=== PATIENT | female | born 1945 | race Caucasian/White ===

== ENCOUNTER 2023-11-30 11:41 | Outpatient (CLI) | payer MEDICARE, SELFPAY ==
[2023-11-30 18:21] LABS: Basophils # 0.1 K/mm3 (0-0.2); Basophils % 0.8 % (0.1-2.0); Eosinophils # 0.1 K/mm3 (0.0-0.4); Eosinophils % 1.6 % (0.1-12.0); Hematocrit 41.4 % (37.0-47.0); Lymphocytes # 1.2 K/mm3 (0.7-4.5); Lymphocytes % 21.6 % (10-50); Mean Corpuscular HGB Conc 31.4 g/dL (31.8-35.4); Mean Corpuscular Hemoglobin 30.1 pg (27.0-31.2); Mean Corpuscular Volume 95.9 fl (81-99); Mean Platelet Volume 10.1 fl (7.4-10.4); Monocytes # 0.4 K/mm3 (0.1-1.0); Monocytes % 6.5 % (1.7-9.3); Neutrophils % 69.4 % (37.0-80.0); Platelet Count 279 K/mm3 (142-424); Red Blood Count 4.32 M/mm3 (4.20-5.40); Red Cell Distribution Width 13.3 % (11.5-17.5); White Blood Count 5.7 K/mm3 (4.8-10.8)
[2023-11-30 18:54] LABS: Alanine Aminotransferase 25 U/L (12-78); Albumin Level 4.4 g/dl (3.5-5.0); Albumin/Globulin Ratio 1.6 (1.1-1.8); Alkaline Phosphatase 79 U/L (38-126); Anion Gap 11.3 mEq/L (5-15); Aspartate Amino Transferase 37 U/L (14-36); Bilirubin,Total 0.5 mg/dl (0.2-1.3); Blood Urea Nitrogen 19 mg/dl (7-17); Calcium 10.1 mg/dl (8.4-10.2); Carbon Dioxide 28 mmol/L (22.0-30.0); Chloride 105 mmol/L (98-107); Estimated Glomerular Filt Rate 69 ml/min (>60); GFR (African American) 84 ML/MIN (>60); Globulin 2.7 g/dL (1.3-3.2); Glucose 105 mg/dl (74-100); HDL Cholesterol 49 mg/dl (40-60); Potassium 4.3 mmoL/L (3.5-5.1); Sodium 140 mmol/L (136-145); Total Protein,Serum 7.1 g/dl (6.3-8.2); Triglycerides 208 mg/dl (30-150); VLDL Cholesterol 42 mg/dL (0-40)
[2023-11-30 19:05] LABS: Direct LDL Cholesterol 188.72 mg/dL (100-129)
[2023-11-30 19:11] LABS: 25-OH Vitamin D, Total 37.4 ng/mL (30-100)
[2023-11-30 19:17] LABS: Chol/HDL Ratio 6.9 (1-3.5); Cholesterol 336 mg/dl (140-200)
[2023-11-30 19:24] LABS: Thyroid Stimulating Hormone 2.48 uIU/mL (0.465-4.68)
[2023-11-30 20:02] LABS: Vitamin B12 > 1000 pg/mL (239-931)
[2023-11-30 20:18] LABS: Hemoglobin A1C 5.9 % (4.0-6.0)
== END 2023-11-30 23:59 | disposition home or self-care (01) ==
LOC: LAB.DROPOF 12-01 11:41
PROVIDERS: PCP Internal Medicine; Visit Provider Internal Medicine
DX: R53.83 Other fatigue (principal); E78.5 Hyperlipidemia, unspecified; R73.09 Other abnormal glucose; E55.9 Vitamin D deficiency, unspecified; Z68.25 Body mass index [BMI] 25.0-25.9, adult
CPT/HCPCS: 80053; 80061; 82306; 82607; 83036; 84443; 85025

== ENCOUNTER 2023-12-09 08:47 | Outpatient (CLI) | payer MEDICARE, SELFPAY ==
--- NOTE | 2023-12-09 08:49 | CA_ITS ---
FINAL REPORT TECHNIQUE: Bilateral lower extremity venous duplex was performed with augmentation and compression. CLINICAL HISTORY: Bilateral lower extremity edema, CVA, ASA 81 mg COMPARISON: None FINDINGS: Proper flow is seen throughout the deep venous systems bilaterally. There is no evidence of deep venous thrombosis. IMPRESSION: No evidence of deep venous thrombosis of the bilateral lower extremities. Reviewed, Interpreted and Dictated by Sean Lopez MD Transcribed by Aileen Gann Authenticated and [facility]
== END 2023-12-09 23:59 | disposition home or self-care (01) ==
LOC: RT 08:49
PROVIDERS: PCP Internal Medicine; Visit Provider Internal Medicine
DX: R60.0 Localized edema (principal)
CPT/HCPCS: 93970

== ENCOUNTER 2024-04-05 10:44 | Outpatient (CLI) | payer MEDICARE, SELFPAY ==
[2024-04-05 19:30] LABS: Hemoglobin A1C 5.8 % (4.0-6.0)
[2024-04-05 19:37] LABS: HDL Cholesterol 46 mg/dl (40-60); Triglycerides 205 mg/dl (30-150); VLDL Cholesterol 41 mg/dL (0-40)
[2024-04-05 19:45] LABS: Chol/HDL Ratio 7.4 (1-3.5); Cholesterol 341 mg/dl (140-200)
[2024-04-05 19:56] LABS: Direct LDL Cholesterol 202.73 mg/dL (100-129)
[2024-04-05 19:57] LABS: Creatinine,Urine Random 38 mg/dL (Not Estab.); Microalbumin < 6.000 mg/L (0-16.7)
== END 2024-04-05 23:59 | disposition home or self-care (01) ==
LOC: LAB.DROPOF 04-06 10:44
PROVIDERS: PCP Internal Medicine; Visit Provider Internal Medicine
DX: Z13.1 Encounter for screening for diabetes mellitus (principal); R73.03 Prediabetes; E66.3 Overweight; Z68.29 Body mass index [BMI] 29.0-29.9, adult
CPT/HCPCS: 80061; 82043; 82570; 83036

== ENCOUNTER 2024-04-19 16:44 | Outpatient (CLI) | payer MEDICARE, SELFPAY ==
--- NOTE | 2024-04-19 16:45 | MR_ITS ---
FINAL REPORT CLINICAL HISTORY: radicular pain bilaterally. hx lumbar surgery 15 years ago. low back pain. COMPARISON: None FINDINGS: Multiplanar MR imaging of the lumbar spine was performed without and with contrast. There is evidence of a prior fusion at the L4-5 level. On the sagittal T2-weighted images, disc degeneration is seen at multiple levels. The vertebral alignment is normal. There is no evidence of fracture. The conus is seen at approximately the L1 level and has an unremarkable appearance. T12-L1: There is no significant canal stenosis or neural foraminal narrowing. L1-2: An annular bulge is present, with facet arthropathy, and with mild bilateral neural foraminal narrowing. L2-3: An annular bulge is present with facet arthropathy and osteophytes. There is bilateral lateral recess stenosis, moderate canal stenosis with an AP canal diameter of 5 mm, and moderate bilateral neural foraminal narrowing. L3-4: An annular bulge is present with facet arthropathy. There is bilateral lateral recess stenosis, moderate bilateral neural foraminal narrowing, and moderate canal stenosis with an AP canal diameter of 6 mm. L4-5: L4-5 laminectomies and fusion have been performed. There is mild left neural foraminal narrowing. L5-S1: An annular bulge is present with facet arthropathy and osteophytes. There is moderate bilateral neural foraminal narrowing. No abnormal contrast enhancement is identified. There is a linear focus of decreased signal, nonenhancing, in the medial right iliac bone, that may represent postoperative change. IMPRESSION: Prior fusion at the L4-5 level. Multilevel degenerative change, most severe at the L2-3 and L3-4 levels with moderate canal stenosis and moderate bilateral neural foraminal narrowing. Reviewed, Interpreted and Dictated by Bonilla Coombs III, MD Transcribed by Arlette Condon Authenticated and [facility]
[2024-04-19 17:17] LABS: Blood Urea Nitrogen 27 mg/dl (7-17); Estimated Glomerular Filt Rate 69 ml/min (>60); GFR (African American) 84 ML/MIN (>60)
[2024-04-19] MEDS: SODIUM CHLORIDE 0.9% 10ML SYR (RAD ONLY) 10 ML IV (17:39)
[2024-04-19] MEDS: GADOTERIDOL INJ 10ML SYRINGE 13 ML IV (17:40)
== END 2024-04-19 23:59 | disposition home or self-care (01) ==
LOC: RAD 16:45
PROVIDERS: PCP Internal Medicine; Visit Provider Internal Medicine
DX: M54.42 Lumbago with sciatica, left side (principal); M54.41 Lumbago with sciatica, right side; G89.29 Other chronic pain
CPT/HCPCS: 36415; 72158; 82565; 84520; A9576

== ENCOUNTER 2024-05-04 09:48 | Outpatient (POV) | payer MEDICARE, SELFPAY ==
[2024-05-04 10:35] VITALS: BP 156/86; PULSE 87; O2SAT 97; BMI 25.9
--- NOTE | 2024-05-04 12:22 | A.OFFVIS_ITS ---
HPI Data of Consult Patient: new to practice Consult date: 05/04/24 Requesting Physician: Drea Hampton APRN Primary Care Provider: Taj Case DO Consult Narrative Reason for consult: Low back pain, bilateral hip pain, peripheral neuropathy History of present illness: Ms. Epps is a 78 year old female who presents today as a new patient. She is a referral from primary care on [facility]. Today she rates her pain a 6 out of 10. Patient states her pain is all around her low back and bilateral hips but she also has pain from her waist down related to a history of stroke as well as peripheral neuropathy. Patient states her pain is always a constant sensation and describes it as an aching, throbbing, tingling that does interfere with her ability perform activities of daily living such as cooking and cleaning. Patient states she has had this pain for years and its progressively worsened. Patient does state that she has had prior lumbar spinal fusion back in 2002. Patient does also states she has been in pain management in the past in [place] and that she did have 1 injection that was very very painful. She states during that time they did not let the lidocaine or numbing medication kick in long enough before they did the additional injection and it was very severe. Patient does also state that she has had prior injections in her neck related to a fall she suffered. Patient is prescribed compounded cream for her feet currently and has tried and failed conservative therapy such as oral medication, heat and ice and topicals as well as chiropractor therapy with no additional changes. Patient has tried to be very active at home with minimal changes. Patient does use a cane for help with ambulation. Her Abrahan has been reviewed and is appropriate. CC: Drea Hampton APRN [facility] Disclaimer: The information contained in this section may have been updated after the patient was seen, as this information can be updated by other users. Medical History Prolapse of bladder History of stroke 2020 Basal cell carcinoma Diverticulitis Hx of Clostridium difficile infection Myalgia and myositis Depression Menopausal disorder Dry senile macular degeneration Herniated disc Lactose intolerance Irritable bowel syndrome (IBS) High cholesterol Surgical History Hx of spinal fusion History of mandibular surgery H/O: hysterectomy Social History Smoking Status: Never smoker alcohol intake: never substance use type: denies use current occupational status: retired Travel in the last 8 weeks: None Review of Systems Review of Systems Review of systems:: pertinent systems reviewed and negative unless documented b elow Review of systems (narrative): Review of Systems: General: No recent weight changes, no fever, no sleep disturbances Respiratory: No cough, no shortness of air, no recurring pulmonary infections Cardiovascular/peripheral vascular: No chest pain, no palpitations, no edema, no shortness of breath Gastrointestinal: No new onset incontinence, normal bowel movements reported Genitourinary: No new onset incontinence Musculoskeletal: Low back pain, bilateral hip pain, peripheral neuropathy, chronic neck pain Psychiatric: [Normal mood/affect] Neurological: [Denies weakness in extremities], [denies balance issues] Meds Home Medications and Allergies Home Medications ?Medication ?Instructions ?Recorded ?Confirmed ?Type aspirin 81 mg tablet,delayed 81 mg PO DAILY 11/30/23 05/04/24 History release (Adult Low Dose Aspirin) cholecalciferol (vitamin D3) 25 25 mcg PO DAILY 11/30/23 05/04/24 History mcg (1,000 unit) capsule diphenhydramine HCl 25 mg capsule 25 mg PO HS PRN allergies 11/30/23 05/04/24 History (Benadryl) metoprolol tartrate 25 mg tablet 25 mg PO DAILY 11/30/23 05/04/24 History cftfotuojcwz-fcpyarwn-drfzxz tablet 1 tab PO DAILY 11/30/23 05/04/24 History potassium citrate 99 mg capsule 99 mg PO DIRECTED 11/30/23 05/04/24 History amitriptyline 100 mg tablet 100 mg PO DAILY #90 tabs 12/03/23 05/04/24 Rx ezetimibe 10 mg tablet 10 mg PO DAILY #90 tabs 12/03/23 05/04/24 Rx lisinopril 20 mg tablet 20 mg PO DAILY #90 tabs 12/03/23 05/04/24 Rx oukrvqopc-pvhwwdhck-ryaecrbw-scop 1 tab PO QAC seizures #20 tabs 12/14/23 05/04/24 Rx 16.2 mg-0.1037 mg-0.0194 mg tablet () lidocaine 5 % topical patch 1 patch topical DAILY low back 04/27/24 05/04/24 Rx pain #30 ea New Prescriptions to Start Prescriptions: Allergies Allergy/AdvReac Type Severity Reaction Status Date / Time amlodipine AdvReac Verified 04/26/24 10:57 carvedilol AdvReac Verified 04/26/24 10:57 ciprofloxacin [From Cipro] AdvReac Verified 04/26/24 10:57 duloxetine AdvReac Verified 04/26/24 10:57 fenofibrate AdvReac Verified 04/26/24 10:57 gabapentin AdvReac Verified 04/26/24 10:57 hydrochlorothiazide AdvReac Verified 04/26/24 10:57 hydrocodone AdvReac Verified 04/26/24 10:57 labetalol AdvReac Verified 04/26/24 10:57 niacin AdvReac Verified 04/26/24 10:57 paroxetine AdvReac Verified 04/26/24 10:57 Qszzvew-JBY-EhC Reductase AdvReac Verified 04/26/24 10:57 Inhibitor Sulfa (Sulfonamide AdvReac Verified 04/26/24 10:57 Antibiotics) valsartan AdvReac Verified 04/26/24 10:57 Objective Vital signs: Pulse BP Pulse Ox O2 Del Method 87 156/86 H 97 Room Air 05/04/24 10:35 05/04/24 10:35 05/04/24 10:35 05/04/24 10:35 Narrative: Physical Exam: General: Alert and oriented x3, no acute distress, pleasant and cooperative Lungs: Respirations even and unlabored, symmetrical chest expansion Eyes: PERRL Musculoskeletal: Flexion and extension of lumbar [spine] somewhat guarded secondary to pain, [antalgic gait noted] point tenderness along bilateral SIs with positive bilateral Puma's, Ed's, Gaenslen's, compression and distraction exam Neurological: Speech clear, no gross sensory deficit Additional findings Additional findings: FINDINGS: Multiplanar MR imaging of the lumbar spine was performed without and with contrast. There is evidence of a prior fusion at the L4-5 level. On the sagittal T2-weighted images, disc degeneration is seen at multiple levels. The vertebral alignment is normal. There is no evidence of fracture. The conus is seen at approximately the L1 level and has an unremarkable appearance. T12-L1: There is no significant canal stenosis or neural foraminal narrowing. L1-2: An annular bulge is present, with facet arthropathy, and with mild bilateral neural foraminal narrowing. L2-3: An annular bulge is present with facet arthropathy and osteophytes. There is bilateral lateral recess stenosis, moderate canal stenosis with an AP canal diameter of 5 mm, and moderate bilateral neural foraminal narrowing. L3-4: An annular bulge is present with facet arthropathy. There is bilateral lateral recess stenosis, moderate bilateral neural foraminal narrowing, and moderate canal stenosis with an AP canal diameter of 6 mm. L4-5: L4-5 laminectomies and fusion have been performed. There is mild left neural foraminal narrowing. L5-S1: An annular bulge is present with facet arthropathy and osteophytes. There is moderate bilateral neural foraminal narrowing. No abnormal contrast enhancement is identified. There is a linear focus of decreased signal, nonenhancing, in the medial right iliac bone, that may represent postoperative change. IMPRESSION: Prior fusion at the L4-5 level. Multilevel degenerative change, most severe at the L2-3 and L3-4 levels with moderate canal stenosis and moderate bilateral neural foraminal narrowing. Reviewed, Interpreted and Dictated by Bonilla Coombs III, MD Transcribed by Arlette Condon Authenticated and [facility] Assessment and Plan *Assessment and plan (1) Degenerative disc disease, lumbar: Status: Acute Category: Medical Code(s): M51.36 - Other intervertebral disc degeneration, lumbar region (2) Bilateral sacroiliitis: Status: Acute Category: Medical Code(s): M46.1 - Sacroiliitis, not elsewhere classified (3) Spinal stenosis: Status: Acute Category: Medical Code(s): M48.00 - Spinal stenosis, site unspecified (4) Peripheral neuropathy: Status: Acute Qualifiers: Peripheral neuropathy type: polyneuropathy, unspecified Qualified Code(s): G62.9 - Polyneuropathy, unspecified Category: Medical Code(s): G62.9 - Polyneuropathy, unspecified Plan Patient is experiencing significant pain across her low back with point tenderness along her bilateral SIs and a positive bilateral Puma's, Ed's, Gaenslen's, compression and distraction exam. I did discuss with the patient that she may benefit from bilateral SI injections under fluoroscopy. Risk and benefits were discussed with patient and she would like to proceed forward with this plan of care. Patient has had injections in the past that were very painful. I have counseled the patient that we will try and really numb her up prior to these injections to minimize her discomfort. Patient agrees with this plan of care. Patient has tried and failed conservative therapy including continued at home stretching exercise for longer than 6 weeks. Patient will be scheduled for bilateral SI injections under fluoroscopy. Patient has been instructed to contact the clinic with any concerns before the next appointment. Dr. Saldana has reviewed this note and agrees with this plan of care. This note was dictated using voice recognition software and make contain errors or omissions. All injections are used with Lidocaine or Bupivacaine and Depo Medrol.
== END 2024-05-04 23:59 | disposition home or self-care (01) ==
LOC: SC.PAIN 09:50
PROVIDERS: PCP Internal Medicine; Visit Provider Nurse Practitioner Family
DX: M51.36 Other intervertebral disc degeneration, lumbar region (principal); M46.1 Sacroiliitis, not elsewhere classified; M48.00 Spinal stenosis, site unspecified; G62.9 Polyneuropathy, unspecified; Z86.73 Personal history of transient ischemic attack (TIA), and cerebral infarction without residual deficits; Z73.89 Other problems related to life management difficulty; Z98.1 Arthrodesis status
CPT/HCPCS: 99202; G0463

== ENCOUNTER 2024-09-02 07:23 | Emergency (ER) | payer MEDICARE, SELFPAY ==
[2024-09-02] VITALS (7 sets, daily range): BP systolic 130–148; BP diastolic 57–86; PULSE 57–94; RESP 20; TEMP 36.4–36.8; O2SAT 94–99; BMI 26.5
--- NOTE | 2024-09-02 07:37 | CT_ITS ---
FINAL REPORT TECHNIQUE: Noncontrast exam This study was performed with techniques to keep radiation doses as low as reasonably achievable, (ALARA). Individualized dose reduction techniques using automated exposure control or adjustment of mA and/or kV according to the patient''s size were employed. CLINICAL HISTORY: CABEZAS FINDINGS: Mild atrophy and chronic ischemic white matter changes are noted. No cortical edema is present. There is no mass or hemorrhage. Ventricles are normal. There is a tiny chronic lacunar infarct in the right zack. Bone windows show no skull fracture or obvious obstructive lesion. IMPRESSION: 1. No acute intracranial abnormality or obvious mass. 2. Atrophy and chronic ischemic white matter changes as above. Reviewed, Interpreted and Dictated by Poly Cox MD Transcribed by Pamela Lloyd Authenticated and . [facility]
--- NOTE | 2024-09-02 07:39 | HMH.EDGENADL ---
Discharge Plan Disposition Patient Disposition: Home, Self-Care Prescriptions Prescriptions: No Action metoprolol tartrate 25 mg tablet 25 mg PO DAILY cholecalciferol (vitamin D3) 25 mcg (1,000 unit) capsule 25 mcg PO DAILY diphenhydramine HCl [Benadryl] 25 mg capsule 25 mg PO HS PRN (Reason: allergies) aspirin [Adult Low Dose Aspirin] 81 mg tablet,delayed release (DR/EC) 81 mg PO DAILY vnpflddatkdk-mrdnpbbd-mnmrfl Tablet 1 tab PO DAILY potassium citrate 99 mg capsule 99 mg PO DIRECTED lidocaine 5 % adhesive patch,medicated 1 patch topical DAILY Qty: 30 3RF Rx Instructions: leave on most painful area for up to 12 hrs amitriptyline 100 mg tablet 100 mg PO DAILY Qty: 90 4RF ezetimibe 10 mg tablet 10 mg PO DAILY Qty: 90 4RF lisinopril 20 mg tablet 20 mg PO DAILY Qty: 90 4RF ovunsgnkj-dcsuqw-wzqjdodi-scop [] 16.2-0.1037 -0.0194 mg tablet 1 tab PO QAC Qty: 20 5RF Referrals Follow up/Referrals: Taj Case DO [Primary Care Provider] - See instructions Activity Restrictions/Add. Instructions Additional Instructions/Restrictions: Follow-up with primary care doctor. Take Tylenol and ibuprofen as needed for symptoms. Please return the emerged part with any new, concerning, worsening symptoms. Clinical Impressions Clinical Impression: Headache Qualifiers: Headache type: unspecified Headache chronicity pattern: acute headache Intractability: not intractable Qualified Code(s): R51.9 - Headache, unspecified Print Language Print Language: [place] Discharge ED Provider: Lauro Lundy General Adult HPI General Chief complaint: Headache Stated complaint: severe pain in left side of head Time Seen by Provider: 09/02/24 07:30 Mode of Arrival: Ambulatory Source of Information: Patient Limitations: No Limitations History of Present Illness HPI narrative: This is a 78-year-old female with a history of hypertension, hyperlipidemia, stroke in 2020 with no residual deficits who presents with a left-sided headache for the last 24 hours. States that the headache has been constant in severity, intermittent to the left parietotemporal area, characterized by stabbing pains every 30 seconds or so. Denies any tearing or runny nose. Denies fever. Denies any photophobia or vision changes. States that she has never had a headache like this before. Daughter has a history of migraines however she does not. Related Data Home Medications ?Medication ?Instructions ?Recorded ?Confirmed aspirin 81 mg tablet,delayed 81 mg PO DAILY 11/30/23 06/20/24 release (Adult Low Dose Aspirin) cholecalciferol (vitamin D3) 25 25 mcg PO DAILY 11/30/23 06/20/24 mcg (1,000 unit) capsule diphenhydramine HCl 25 mg capsule 25 mg PO HS PRN allergies 11/30/23 06/20/24 (Benadryl) metoprolol tartrate 25 mg tablet 25 mg PO DAILY 11/30/23 06/20/24 fbencehhealy-atmizptd-pfwyoj tablet 1 tab PO DAILY 11/30/23 06/20/24 potassium citrate 99 mg capsule 99 mg PO DIRECTED 11/30/23 06/20/24 Previous Rx's ?Medication ?Instructions ?Recorded amitriptyline 100 mg tablet 100 mg PO DAILY #90 tabs 12/03/23 ezetimibe 10 mg tablet 10 mg PO DAILY #90 tabs 12/03/23 lisinopril 20 mg tablet 20 mg PO DAILY #90 tabs 12/03/23 xxbdfghij-jpinkxmva-jtgteqxf-scop 1 tab PO QAC seizures #20 tabs 12/14/23 16.2 mg-0.1037 mg-0.0194 mg tablet () lidocaine 5 % topical patch 1 patch topical DAILY low back 04/27/24 pain #30 ea Allergies Allergy/AdvReac Type Severity Reaction Status Date / Time amlodipine AdvReac Verified 06/20/24 10:09 carvedilol AdvReac Verified 06/20/24 10:09 ciprofloxacin (From Cipro) AdvReac Verified 06/20/24 10:09 duloxetine AdvReac Verified 06/20/24 10:09 fenofibrate AdvReac Verified 06/20/24 10:09 gabapentin AdvReac Verified 06/20/24 10:09 hydrochlorothiazide AdvReac Verified 06/20/24 10:09 hydrocodone AdvReac Verified 06/20/24 10:09 labetalol AdvReac Verified 06/20/24 10:09 niacin AdvReac Verified 06/20/24 10:09 paroxetine AdvReac Verified 06/20/24 10:09 Wpnixfq-VTX-SfW Reductase AdvReac Verified 06/20/24 10:09 Inhibitor Sulfa (Sulfonamide AdvReac Verified 06/20/24 10:09 Antibiotics) valsartan AdvReac Verified 06/20/24 10:09 [facility] Disclaimer: The information contained in this section may have been updated after the patient was seen, as this information can be updated by other users. Medical History Prolapse of bladder History of stroke 2020 Basal cell carcinoma Diverticulitis Hx of Clostridium difficile infection Myalgia and myositis Depression Menopausal disorder Dry senile macular degeneration Herniated disc Lactose intolerance Irritable bowel syndrome (IBS) High cholesterol Surgical History Hx of spinal fusion History of mandibular surgery H/O: hysterectomy Social History Smoking Status: Never smoker alcohol intake: never substance use type: denies use current occupational status: other Travel in the last 8 weeks: None Have you lived/traveled outside [place] in past 30 days?: No Contact w/someone who lives/traveled outside US past 30 days?: No Exposure to someone with infectious disease in past 14 days?: No Do you have a fever (greater than 100.4 F or 38 C)?: No Have you tested positive for COVID-19: No Exposed to someone with COVID-19 in past 14 days?: No Do you have a sore throat?: No Do you have a cough?: No Do you have any weakness?: No Do you have any diarrhea?: No Are you experiencing any unusual bleeding?: No Do you have any muscle aches/pain?: No Do you have any abdominal pain?: No Are you experiencing loss of taste or smell?: No Other Medical History Have you received the Flu Vaccine for this season: Yes Have you received the Pneumonia Vaccine: Yes ROS Obtained: Yes All systems reviewed & no additional complaints except as documented Physical Exam General General appearance: alert and in no apparent distress Head Head exam: normal inspection and other (Nontender) Eye Eye exam: Present normal appearance, PERRL and EOMI Respiratory Respiratory exam: Present normal lung sounds bilaterally; Absent respiratory distress Cardiovascular Cardiovascular exam: Present regular rate and normal rhythm Abdominal Exam Abdominal exam: Present soft and distention; Absent tenderness, guarding or rebound Extremities Exam Extremities exam: Present normal inspection Neurological Exam Neurological exam: Present alert and oriented X3 Skin Skin exam: Present warm and dry Medical Decision Making Medical Records Medical records reviewed: Yes I reviewed the patient's medical records. Screening: Per USPSTF and CDC recommendations, given the prevalence of disease in our region, it is our hospital?s policy to screen for HIV and viral Hepatitis for all patients aged 18 and over and those with ongoing risk factors. Abrahan Inquiry Pt receiving controlled substance: No Vital Signs: 09/02/24 07:24 09/02/24 07:32 09/02/24 08:04 Temperature 97.6 F Temperature Source Oral Pulse Rate 94 H 69 Pulse Rate [Left Radial] 80 Respiratory Rate 20 Blood Pressure 148/86 H 134/72 Blood Pressure [Right Arm] 148/86 H Blood Pressure Mean [Right Arm] 106 02 Sat by Pulse Oximetry 98 97 99 Oxygen Delivery Method Room Air Room Air 09/02/24 08:30 09/02/24 09:01 09/02/24 09:31 Temperature Temperature Source Pulse Rate 65 59 L 57 L Pulse Rate [Left Radial] Respiratory Rate Blood Pressure 142/65 H 134/57 L 130/65 Blood Pressure [Right Arm] Blood Pressure Mean [Right Arm] 02 Sat by Pulse Oximetry 94 L 96 96 Oxygen Delivery Method Room Air Room Air Room Air Lab Data Lab Results 09/02/24 07:40: WBC 6.5, RBC 4.58, Hgb 13.1, Hct 40.8, MCV 89.1, MCH 28.6, MCHC 32.1, RDW 12.7, Plt Count 263, MPV 10.9 H, Neut % (Auto) 48.4, Lymph % (Auto) 40.1, [place] % (Auto) 8.6, Eos % (Auto) 2.0, Baso % (Auto) 0.6, Neut # (Auto) 3.2, Lymph # (Auto) 2.6, [place] # (Auto) 0.6, Eos # (Auto) 0.1, Baso # (Auto) 0.0, Sodium 140, Potassium 3.8, Chloride 104, Carbon Dioxide 27, Anion Gap 12.8, BUN 24 H, Creatinine 0.90, Estimated Creat Clear 49, Estimated GFR 60, Est GFR ( Amer) 73, Glucose 98, Calcium 10.8 H, Total Bilirubin 0.4, AST 37 H, ALT 31, Alkaline Phosphatase 68, Total Protein 7.5, Albumin 4.8, Globulin 2.7, Albumin/Globulin Ratio 1.8 09/02/24 07:40 09/02/24 07:40 Orders (Tests/Meds): ED MEDICATIONS Discontinued Medications Generic Name Dose Route Start Last Admin Trade Name Vicente PRN Reason Stop Dose Admin Acetaminophen 1,000 mg 09/02/24 07:36 09/02/24 07:46 Acetaminophen 500mg Tab PO 09/02/24 07:37 1,000 mg ONCE ONE Administration Diphenhydramine HCl 25 mg 09/02/24 07:38 09/02/24 07:48 Diphenhydramine 50mg/Ml Vial IV 09/02/24 07:39 25 mg ONCE ONE Administration Magnesium Sulfate 2 gm in 50 mls @ 50 mls/hr 09/02/24 07:38 09/02/24 07:48 Magnesium Sulfate 2gm/50ml Premix IV 09/02/24 08:37 50 mls/hr ONCE ONE Administration Ketorolac Tromethamine 15 mg 09/02/24 08:13 09/02/24 08:38 Ketorolac 30mg/Ml Vial IV 09/02/24 08:14 15 mg ONCE ONE Administration Metoclopramide HCl 10 mg 09/02/24 07:38 09/02/24 07:48 Metoclopramide Hcl 10mg/2ml Vial IVP 09/02/24 07:39 10 mg ONCE ONE Administration ORDERS Category Date Time Status CT head/brain wo con Stat Cat Scan 09/02/24 07:37 Completed CBC w/Auto Diff [Complete Blood Count Auto Diff] Stat Lab 09/02/24 07:40 Completed CMP [Comprehensive Metabolic Panel] Stat Lab 09/02/24 07:40 Completed Medical Decision Narrative: In summary, this 78-year-old female with a history of hypertension, hyperlipidemia, stroke in 2020 presents to the emergency department today with headache for the last 24 hours. On initial evaluation patient is normotensive, nontachycardic, afebrile, GCS 15, normal neurological exam. Differential diagnosis includes but is not limited to temporal arteritis, stroke, intracranial hemorrhage, migraine, tension headache. Low clinical discern for temporal arteritis as patient is nontender over this area and low clinical concern for stroke as she has a normal neurological exam. Based on these concerns, I ordered CT head, CBC, CMP. Patient received magnesium, Reglan, Benadryl, Tylenol for treatment. Considered NSAIDs, however will obtain CT imaging and evaluate renal function first. Labs personally reviewed demonstrate []. CT imaging personally interpreted demonstrates no acute intracranial pathology. On reassessment patient reported improvement in symptoms. She is to follow-up with primary care doctor and take Tylenol/ibuprofen as needed for symptoms. Ultimately discharged in stable condition. Critical Care Critical Care Time Critical Care Time: No
[2024-09-02] MEDS: ACETAMINOPHEN 500MG TAB 1000 MG PO (07:46)
[2024-09-02] MEDS: diphenhydrAMINE 50MG/ML VIAL 25 MG IV (07:48)
[2024-09-02] MEDS: MAGNESIUM SULFATE IN WATER 2 GM/50 ML PIGGYBACK IV (07:48)
[2024-09-02] MEDS: METOCLOPRAMIDE HCL 10MG/2ML VIAL 10 MG IVP (07:48)
[2024-09-02 08:01] LABS: Basophils % 0.6 % (0.1-2.0); Eosinophils # 0.1 K/mm3 (0.0-0.4); Hematocrit 40.8 % (37.0-47.0); Hemoglobin 13.1 g/dL (12.2-16.2); Lymphocytes # 2.6 K/mm3 (0.7-4.5); Lymphocytes % 40.1 % (10-50); Mean Corpuscular HGB Conc 32.1 g/dL (31.8-35.4); Mean Corpuscular Hemoglobin 28.6 pg (27.0-31.2); Mean Corpuscular Volume 89.1 fl (81-99); Mean Platelet Volume 10.9 fl (7.4-10.4); Monocytes # 0.6 K/mm3 (0.1-1.0); Monocytes % 8.6 % (1.7-9.3); Neutrophils # 3.2 K/mm3 (1.8-7.8); Neutrophils % 48.4 % (37.0-80.0); Platelet Count 263 K/mm3 (142-424); Red Blood Count 4.58 M/mm3 (4.20-5.40); Red Cell Distribution Width 12.7 % (11.5-17.5); White Blood Count 6.5 K/mm3 (4.8-10.8)
[2024-09-02 08:10] LABS: Alanine Aminotransferase 31 U/L (12-78); Albumin Level 4.8 g/dl (3.5-5.0); Albumin/Globulin Ratio 1.8 (1.1-1.8); Alkaline Phosphatase 68 U/L (38-126); Anion Gap 12.8 mEq/L (5-15); Aspartate Amino Transferase 37 U/L (14-36); Bilirubin,Total 0.4 mg/dl (0.2-1.3); Blood Urea Nitrogen 24 mg/dl (7-17); Calcium 10.8 mg/dl (8.4-10.2); Carbon Dioxide 27 mmol/L (22.0-30.0); Chloride 104 mmol/L (98-107); Creatinine Clearance Estimated 49 mL/min (50-200); Estimated Glomerular Filt Rate 60 ml/min (>60); GFR (African American) 73 ML/MIN (>60); Globulin 2.7 g/dL (1.3-3.2); Glucose 98 mg/dl (74-100); Potassium 3.8 mmoL/L (3.5-5.1); Sodium 140 mmol/L (136-145); Total Protein,Serum 7.5 g/dl (6.3-8.2)
[2024-09-02] MEDS: KETOROLAC 30MG/ML VIAL 15 MG IV (08:38)
== END 2024-09-02 09:54 | disposition home or self-care (01) ==
PROVIDERS: Emergency Provider Student in an Organized Health Care Education/Training Program; PCP Internal Medicine
DX: R51.9 Headache, unspecified (principal)
CPT/HCPCS: 70450; 80053; 85025; 96365; 96374; 96375; 99284; J1200; J1885; J2765; J3475

== ENCOUNTER 2025-04-06 12:24 | Outpatient (CLI) | payer MEDICARE, SELFPAY ==
[2025-04-06 19:09] LABS: Hematocrit 39.5 % (37.0-47.0); Hemoglobin 12.5 g/dL (12.2-16.2); Immature Granulocytes % 0.4 %; Mean Corpuscular HGB Conc 31.6 g/dL (31.8-35.4); Mean Corpuscular Hemoglobin 29.4 pg (27.0-31.2); Mean Corpuscular Volume 92.9 fl (81-99); Nucleated Red Blood Cells % 0 %; Platelet Count 289 K/mm3 (142-424); Red Blood Count 4.25 M/mm3 (4.20-5.40); Red Cell Distribution Width-SD 44.8 fL; White Blood Count 7.8 K/mm3 (4.8-10.8)
[2025-04-06 19:53] LABS: Albumin Level 4.5 g/dl (3.5-5.0); Chloride 106 mmol/L (98-107); Sodium 142 mmol/L (136-145)
[2025-04-06 19:54] LABS: Potassium 5.1 mmoL/L (3.5-5.1)
[2025-04-06 19:56] LABS: Alanine Aminotransferase 20 U/L (12-78); Albumin/Globulin Ratio 1.7 (1.1-1.8); Alkaline Phosphatase 76 U/L (38-126); Anion Gap 12.1 mEq/L (5-15); Aspartate Amino Transferase 31 U/L (14-36); Bilirubin,Total 0.3 mg/dl (0.2-1.3); Blood Urea Nitrogen 20 mg/dl (7-17); Carbon Dioxide 29 mmol/L (22.0-30.0); Cholesterol 324 mg/dl (140-200); Creatinine,Serum 0.70 mg/dl (0.52-1.04); Estimated Glomerular Filt Rate 81 ml/min (>60); GFR (African American) 97 ML/MIN (>60); Globulin 2.7 g/dL (1.3-3.2); Total Protein,Serum 7.2 g/dl (6.3-8.2); Triglycerides 398 mg/dl (30-150)
[2025-04-06 19:57] LABS: Calcium 10.1 mg/dl (8.4-10.2); Glucose 86 mg/dl (74-100); HDL Cholesterol 41 mg/dl (40-60)
--- OUTSIDE RECORDS SUMMARY | 2025-04-10 12:29 | XMS_ITS | Encounter Summary ---
Author Organization [facility] Health Address [address] [facility] [place] [address] Care Team Providers Care Director Hris Name Role Phone Unavailable Primary Care Provider Unavailabl e Prior Encounters Date Type Department Care Team Description 09/05/2019 Converted CPS Chart Documents [facility] [address] [facility], [address] [id number] <No scans attached> 09/05/2019 Converted 13x Documents [facility] [address] [place] [address] , [address] [address] <No scans attached> Plan of Treatment Not on file Procedures Procedure Name Priority Date/Time Associated Diagnosis Comments CANCELLED APPOINTMENT Routine 12/22/2019 12:00 AM PDT CANCELLED APPOINTMENT Routine 08/19/2019 12:00 AM PST ORAL HYGIENE INSTRUCTIONS Routine 2018 12:00 AM PDT 1 BERNADETTE DECON Routine 06/10/2019 12:00 AM PDT UR PERIODONTAL SCALING AND ROOT PLANING - ONE TO THREE TEETH PER QUADRANT Routine 06/10/2019 12:00 AM PDT UL PERIODONTAL SCALING AND ROOT PLANING - ONE TO THREE TEETH PER QUADRANT Routine 06/10/2019 12:00 AM PDT LR PERIODONTAL SCALING AND ROOT PLANING - ONE TO THREE TEETH PER QUADRANT Routine 06/10/2019 12:00 AM PDT LL PERIODONTAL SCALING AND ROOT PLANING - ONE TO THREE TEETH PER QUADRANT Routine 06/10/2019 12:00 AM PDT UR ANTIBACT IRR/QUAD Routine 06/10/2019 12:00 AM PDT UL ANTIBACT IRR/QUAD Routine 06/10/2019 12:00 AM PDT LR ANTIBACT IRR/QUAD Routine 06/10/2019 12:00 AM PDT LL ANTIBACT IRR/QUAD Routine 06/10/2019 12:00 AM PDT 9 PONTIC - PFM - POST Routine 06/07/2019 12:00 AM PDT 8 PONTIC - PFM - POST Routine 06/07/2019 12:00 AM PDT 4 PONTIC - PFM - POST Routine 06/07/2019 12:00 AM PDT 3 PONTIC - PFM - POST Routine 06/07/2019 12:00 AM PDT 30 PONTIC - PFM - POST Routine 9 12:00 AM PDT 31 RETAINER CROWN - PFM - POST Routine 06/07/2019 12:00 AM PDT 29 RETAINER CROWN - PFM - POST Routine 06/07/2019 12:00 AM PDT 20 RETAINER CROWN - PFM - POST Routine 06/07/2019 12:00 AM PDT 19 RETAINER CROWN - PFM - POST Routine 06/07/2019 12:00 AM PDT 10 RETAINER CROWN - PFM - POST Routine 06/07/2019 12:00 AM PDT 7 RETAINER CROWN - PFM - POST Routine 06/07/2019 12:00 AM PDT 5 RETAINER CROWN - PFM - POST Routine 06/07/2019 12:00 AM PDT 2 RETAINER CROWN - PFM - POST Routine 06/07/2019 12:00 AM PDT 28 O AMALGAM 1 SURFACE Routine 9 12:00 AM PDT 15 ENDODONTIC THERAPY, MOLAR TOOTH (EXCLUDING FINAL MORAVIAN) Routine 06/07/2019 12:00 AM PDT 20 IMPLANT Routine 06/07/2019 12:00 AM PDT 19 IMPLANT Routine 06/07/2019 12:00 AM PDT 18 CROWN PFM POST Routine 06/07/2019 12: 00 AM PDT 15 CROWN PFM POST Routine 06/07/2019 12: 00 AM PDT 11 CROWN PFM ANT Routine 06/07/2019 12:0 0 AM PDT 6 CROWN PFM ANT Routine 06/07/2019 12:00 AM PDT COMPREHENSIVE ORAL EVALUATION - NEW OR ESTABLISHED PATIENT Routine 06/07/2019 12:00 AM PDT PANORAMIC RADIOGRAPHIC IMAGE Routine 06/07/2019 12:00 AM PDT INTRAORAL - COMPREHENSIVE SERIES OF RADIOGRAPHIC IMAGES Routine 06/07/2019 12:00 AM PDT INTRAORAL PHOTO Routine 06/07/2019 12:00 AM PDT INTRAORAL PHOTO Routine 06/07/2019 12:00 AM PDT INTRAORAL PHOTO Routine 06/07/2019 12:00 AM PDT INTRAORAL PHOTO Routine 06/07/2019 12:00 AM PDT Visit Diagnoses Not on file
--- OUTSIDE RECORDS SUMMARY | 2025-04-10 12:29 | XMS_ITS | Clinical Summary ---
Author Organization [facility] Health Address [address] [place] [address] Care Team Providers Care Executive Chef Name Role Phone Unavailable Primary Care Provider Unavailabl e Social History Tobacco Use Types Packs/Day Years Used Date Smoking Tobacco: Never Assessed Comments Unknown Sex and Gender Information Value Date Recorded Sex Assigned at Not on file Legal Sex Female 12:56 AM PST Gender Identity Not on file Sexual Orientation Not on file Plan of Treatment Not on file
== END 2025-04-06 23:59 ==
LOC: LAB.DROPOF 04-10 12:25
PROVIDERS: PCP Family Medicine; Visit Provider Family Medicine
DX: I10 Essential (primary) hypertension (principal); E78.5 Hyperlipidemia, unspecified; G62.9 Polyneuropathy, unspecified
CPT/HCPCS: 80053; 80061; 85025